=== PATIENT | female | born 1980 | race Caucasian/White ===

== ENCOUNTER 2020-05-19 19:43 | Emergency (ER) | payer OTHER ==
[~2020-05-19] VITALS: Ht 167.6 cm; Wt 99.8 kg
[~2020-05-19 19:43] MED LIST: CELEXA20 MG PO; CIPRO500 MG PO; ESTRACE0.5 MG PO; FLEXERIL; FLOMAX0.4 MG PO; HYDROCODONE-APA1 TA1 PO; LEVOTHYROXIN0.175 MG PO; LEVSIN-SL0.125 MG SL; NEURONTIN 300300 M1 PO; NORCO 5-325 TA1 EAC1 PO; NORFLEX100 MG PO; TAMSULOSIN HCL0.4 MG PO
[2020-05-19] MEDS ORDERED: LASIX 40 MG TAB40 MG PO (20:03)
[2020-05-19] MEDS ORDERED: GABAPENTIN800 M1 PO (20:03)
[2020-05-19] MEDS ORDERED: KLOR-CON 10 ER10 MEQ PO (20:03)
[2020-05-19] MEDS ORDERED: LIPITOR 20 MG T20 M1 PO (20:03)
[2020-05-19] MEDS ORDERED: METOPROLOL SUCC25 M1 PO (20:04)
[2020-05-19 21:08] VITALS: BP 126/76
== END 2020-05-19 21:09 | disposition home or self-care (01) ==
LOC: M.ERS 19:43
DX: U07.1 COVID-19 (principal); E03.9 Hypothyroidism, unspecified; J45.909 Unspecified asthma, uncomplicated; Z79.899 Other long term (current) drug therapy; Z88.8 Allergy status to other drugs, medicaments and biological substances; Z88.1 Allergy status to other antibiotic agents; Z88.0 Allergy status to penicillin; Z90.710 Acquired absence of both cervix and uterus; Z90.49 Acquired absence of other specified parts of digestive tract

== ENCOUNTER 2021-01-08 07:01 | Emergency (ER) | payer OTHER ==
[~2021-01-08] VITALS: Ht 167.6 cm; Wt 98.9 kg
[~2021-01-08 07:01] MED LIST changes: +GABAPENTIN800 M1 PO; +KLOR-CON 10 ER10 MEQ PO; +LASIX 40 MG TAB40 MG PO; +LIPITOR 20 MG T20 M1 PO; +METOPROLOL SUCC25 M1 PO
[2021-01-08] MEDS ORDERED: ABILIFY 2 MG2 M1 PO (07:21)
[2021-01-08] MEDS ORDERED: NEURONTIN 400400 M1 PO (07:21)
[2021-01-08] MEDS ORDERED: VALIUM10 MG PO (07:22)
[2021-01-08] MEDS ORDERED: HYDROCODON-ACE1 EAC7 PO (08:47)
[2021-01-08 10:04] VITALS: BP 121/65
== END 2021-01-08 10:05 | disposition home or self-care (01) ==
LOC: M.ERS 07:01
DX: S40.012A Contusion of left shoulder, initial encounter (principal); S70.02XA Contusion of left hip, initial encounter; E03.9 Hypothyroidism, unspecified; Z90.49 Acquired absence of other specified parts of digestive tract; J45.909 Unspecified asthma, uncomplicated; Z88.0 Allergy status to penicillin; Z88.8 Allergy status to other drugs, medicaments and biological substances; Z88.1 Allergy status to other antibiotic agents; Z90.710 Acquired absence of both cervix and uterus; Y08.89XA Assault by other specified means, initial encounter; Y93.89 Activity, other specified; Y92.128 Other place in nursing home as the place of occurrence of the external cause; Y99.8 Other external cause status